=== PATIENT | female | born 1960 | race Caucasian/White ===

== ENCOUNTER 2020-08-30 16:01 | Inpatient (IN) | payer MEDICARE, OTHER ==
[~2020-08-30] VITALS: Ht 170.2 cm; Wt 77.7 kg
[~2020-08-30 16:01] MED LIST: TRAZ50TA66 PO; VALA500T4 PO; WARF4TAB PO
--- NOTE | 2020-08-30 17:00 | NUR ---
PT brought in by [facility] states that pt had surgery on August 09 and hasn't been the same since [facility] to walk and weakness. States that got worse and could not get out of bed. Pt states that her doctor called her today and said that she had fluid on her thoracic spine.
--- NOTE | 2020-08-30 17:28 | NUR ---
Provider at bedside
[2020-08-30] MEDS ORDERED: SODIUM CHLORIDE FLUSH 10ML SYR IVF ONE (17:30)
[2020-08-30 17:36] LABS: BASOPHILS % (AUTO) 1 % (0-1); EOSINOPHILS % (AUTO) 2 % (1-7); LYMPHOCYTES % (AUTO) 28 % (22-44); MEAN CORPUSCULAR HEMOGLOBIN 33.3 pg (27.0-34.8); MEAN CORPUSCULAR HGB CONC 34.7 g/dL (32.4-35.8); MEAN PLATELET VOLUME 7.1 fL (7.4-10.4); MONOCYTES % (AUTO) 7 % (2-9); NEUTROPHILS % (AUTO) 63 % (42-75); PLATELET COUNT 360 x10^3/uL (130-400); RED BLOOD COUNT 4.88 x10^6/uL (3.82-5.3); RED CELL DISTRIBUTION WIDTH 13.6 % (9.6-15.2)
--- NOTE | 2020-08-30 17:39 | NUR ---
pt to MRI
[2020-08-30 17:41] LABS: ALBUMIN 3.6 g/dL (3.4-5.0); ANION GAP 5 mmol/L (5-15); CHLORIDE 110 mmol/L (98-107); CREATININE 0.79 mg/dL (0.55-1.02)
[2020-08-30] MEDS ORDERED: GADOTERATE 7.5 MMOL/15ML SYR ONE (17:49)
[2020-08-30 18:01] LABS: MICROSCOPIC NOT IND
--- NOTE | 2020-08-30 18:52 | NUR ---
PT. RETURN FROM MRI AT THIS TIME. [facility] IN TO EVAL PT. FOR ADMISSION.
--- NOTE | 2020-08-30 19:04 | NUR ---
CORRECTION: PT SURGERY WAS ON May NOT July.
--- NOTE | 2020-08-30 19:29 | NUR ---
REPORT TO DIANNE PRINGLE. FLOOR READY FOR PT. TRANSPORT.
[2020-08-30] MEDS ORDERED: ONDANSETRON ODT 4 MG PO PRN (19:30)
[2020-08-30] MEDS ORDERED: ACETAMINOPHEN 325 MG TABLET PO PRN (19:30)
[2020-08-30] MEDS ORDERED: LIDODERM 5% PATCH TD PRN (19:30)
[2020-08-30 19:40] VITALS: BP 125/69
[2020-08-30] MEDS ORDERED: TIZA-106 PO (20:53)
[2020-08-30] MEDS ORDERED: APIX5TAB PO (20:53)
[2020-08-30] MEDS ORDERED: OXYC-306 PO (20:53)
[2020-08-30] MEDS ORDERED: DIPH25CA61 PO (20:53)
[2020-08-30] MEDS ORDERED: MELATONIN 5 MG TABLET PO PRN (21:00)
[2020-08-30] MEDS ORDERED: DIPHENHYDRAMINE 25 MG CAPSULE PO PRN (21:30)
[2020-08-30] MEDS: OXYcodone/APAP 7.5/325MG TABLET PO PRN (22:26)
[2020-08-30] MEDS: APIXABAN 5 MG TABLET PO SCH (22:26)
[2020-08-30] MEDS: TRAZODONE 150MG TABLET PO SCH (23:35)
[2020-08-30] MEDS: DOCUSATE 100 MG CAPSULE PO PRN (23:35)
[2020-08-31] VITALS: BP 122/75
[2020-08-31 05:31] LABS: BASOPHILS % (AUTO) 0 % (0-1); EOSINOPHILS % (AUTO) 0 % (1-7); LYMPHOCYTES % (AUTO) 8 % (22-44); MEAN CORPUSCULAR HEMOGLOBIN 33.2 pg (27.0-34.8); MEAN CORPUSCULAR HGB CONC 34.8 g/dL (32.4-35.8); MEAN PLATELET VOLUME 7.1 fL (7.4-10.4); MONOCYTES % (AUTO) 1 % (2-9); NEUTROPHILS % (AUTO) 92 % (42-75); PLATELET COUNT 349 x10^3/uL (130-400); RED BLOOD COUNT 4.88 x10^6/uL (3.82-5.3); RED CELL DISTRIBUTION WIDTH 13.3 % (9.6-15.2)
[2020-08-31 05:34] LABS: ANION GAP 8 mmol/L (5-15); CALCIUM 9.4 mg/dL (8.5-10.1); CHLORIDE 110 mmol/L (98-107); CREATININE 0.77 mg/dL (0.55-1.02)
[2020-08-31] MEDS: OXYcodone/APAP 7.5/325MG TABLET PO PRN ×3 (05:55→20:07)
[2020-08-31] MEDS: INSULIN LISPRO 100 UNITS/ML, PEN SQ-INSULIN SCH ×4 (07:00→20:13)
[2020-08-31] MEDS: APIXABAN 5 MG TABLET PO SCH (07:46)
[2020-08-31 07:48] VITALS: BP 123/83
[2020-08-31 12:40] LABS: HCT (SEDRATE) 47.8 % (34.6-47.8)
[2020-08-31 12:46] LABS: INTERNATIONAL NORMALIZED RATIO 1.03 (0.93-1.1)
[2020-08-31 13:26] LABS: FREE T4 (FREE THYROXINE) 1.01 ng/dL (0.76-1.46)
[2020-08-31 16:03] VITALS: BP 132/74
[2020-08-31] MEDS: TIZANIDINE 2MG TABLET PO PRN (16:52)
[2020-08-31 18:43] VITALS: BP 137/77
[2020-08-31] MEDS: ENOXAPARIN 80 MG/0.8 ML SQ SCH (20:00)
[2020-08-31] MEDS: DOCUSATE 100 MG CAPSULE PO PRN (22:51)
[2020-08-31] MEDS: TRAZODONE 150MG TABLET PO SCH (22:51)
[2020-08-31] MEDS: INSULIN GLARGINE 100 UNITS/ML, PEN SQ-INSULIN SCH (22:52)
[2020-09-01 00:31] VITALS: BP 115/69
[2020-09-01 05:22] LABS: BASOPHILS % (AUTO) 0 % (0-1); EOSINOPHILS % (AUTO) 0 % (1-7); LYMPHOCYTES % (AUTO) 6 % (22-44); MEAN CORPUSCULAR HEMOGLOBIN 33.2 pg (27.0-34.8); MEAN CORPUSCULAR HGB CONC 34.6 g/dL (32.4-35.8); MEAN PLATELET VOLUME 7.4 fL (7.4-10.4); MONOCYTES % (AUTO) 2 % (2-9); NEUTROPHILS % (AUTO) 93 % (42-75); PLATELET COUNT 331 x10^3/uL (130-400); RED BLOOD COUNT 4.51 x10^6/uL (3.82-5.3); RED CELL DISTRIBUTION WIDTH 13.3 % (9.6-15.2)
[2020-09-01] MEDS: OXYcodone/APAP 7.5/325MG TABLET PO PRN ×3 (05:29→21:34)
[2020-09-01 05:35] LABS: ALBUMIN 3.4 g/dL (3.4-5.0); ANION GAP 5 mmol/L (5-15); CALCIUM 9.2 mg/dL (8.5-10.1); CHLORIDE 114 mmol/L (98-107)
[2020-09-01 05:39] LABS: ALANINE AMINOTRANSFERASE 30 U/L (12-78); ALKALINE PHOSPHATASE 51 U/L (45-117); BILIRUBIN,TOTAL 0.3 mg/dL (0.2-1.0); CREATININE 0.74 mg/dL (0.55-1.02); TOTAL PROTEIN 6.6 g/dL (6.4-8.2)
[2020-09-01] MEDS: INSULIN LISPRO 100 UNITS/ML, PEN SQ-INSULIN SCH ×4 (07:48→21:35)
[2020-09-01] MEDS: ENOXAPARIN 80 MG/0.8 ML SQ SCH ×2 (07:49→20:00)
[2020-09-01 08:35] VITALS: BP 121/78
[2020-09-01] MEDS: TIZANIDINE 2MG TABLET PO PRN (10:32)
[2020-09-01 14:18] VITALS: BP 126/72
[2020-09-01 19:08] VITALS: BP 143/82
[2020-09-01] MEDS: TRAZODONE 150MG TABLET PO SCH (21:34)
[2020-09-01] MEDS: INSULIN GLARGINE 100 UNITS/ML, PEN SQ-INSULIN SCH (21:35)
[2020-09-01] MEDS: DOCUSATE 100 MG CAPSULE PO PRN (22:56)
[2020-09-02 01:13] VITALS: BP 129/75
[2020-09-02] MEDS: OXYcodone/APAP 7.5/325MG TABLET PO PRN ×3 (04:28→20:24)
[2020-09-02 07:07] VITALS: BP 127/69
[2020-09-02] MEDS: ENOXAPARIN 80 MG/0.8 ML SQ SCH (07:16)
[2020-09-02] MEDS: TIZANIDINE 2MG TABLET PO PRN ×2 (08:09→18:50)
[2020-09-02] MEDS: INSULIN LISPRO 100 UNITS/ML, PEN SQ-INSULIN SCH ×4 (08:14→21:23)
[2020-09-02 13:28] VITALS: BP 145/80
[2020-09-02] MEDS: DOCUSATE 100 MG CAPSULE PO PRN (17:25)
[2020-09-02 18:54] VITALS: BP 153/71
[2020-09-02] MEDS: APIXABAN 5 MG TABLET PO SCH (21:00)
[2020-09-02] MEDS: INSULIN GLARGINE 100 UNITS/ML, PEN SQ-INSULIN SCH (21:22)
[2020-09-02] MEDS: TRAZODONE 150MG TABLET PO SCH (22:14)
[2020-09-03 00:08] VITALS: BP 136/80
[2020-09-03] MEDS: OXYcodone/APAP 7.5/325MG TABLET PO PRN ×3 (04:52→20:36)
[2020-09-03] MEDS: INSULIN LISPRO 100 UNITS/ML, PEN SQ-INSULIN SCH ×4 (07:00→20:42)
[2020-09-03 07:08] VITALS: BP 133/74
[2020-09-03] MEDS ORDERED: LIDOCAINE 1%, 20ML ONE ×2 (07:27→07:38)
[2020-09-03] MEDS: APIXABAN 5 MG TABLET PO SCH ×2 (08:02→20:35)
[2020-09-03 09:47] LABS: GLUCOSE, CSF 92 mg/dL (40-80); TOTAL PROTEIN,CSF 87 mg/dL (15-45)
[2020-09-03 14:10] VITALS: BP 142/76
[2020-09-03] MEDS: POLYETHYLENE GLYCOL 17 GM PACKET PO SCH ×2 (16:25→20:36)
[2020-09-03] MEDS: TIZANIDINE 2MG TABLET PO PRN (17:52)
[2020-09-03 20:34] VITALS: BP 133/74
[2020-09-03] MEDS: TRAZODONE 150MG TABLET PO SCH (20:35)
[2020-09-03] MEDS: INSULIN GLARGINE 100 UNITS/ML, PEN SQ-INSULIN SCH (20:41)
[2020-09-04 01:33] VITALS: BP 132/63
[2020-09-04] MEDS: OXYcodone/APAP 7.5/325MG TABLET PO PRN ×2 (04:56→12:45)
[2020-09-04] MEDS: POLYETHYLENE GLYCOL 17 GM PACKET PO SCH (08:11)
[2020-09-04] MEDS: APIXABAN 5 MG TABLET PO SCH (08:11)
[2020-09-04] MEDS: INSULIN LISPRO 100 UNITS/ML, PEN SQ-INSULIN SCH ×2 (08:31→12:32)
[2020-09-04 08:37] VITALS: BP 114/71
[2020-09-04] MEDS ORDERED: SENN-204 PO (10:45)
[2020-09-04] MEDS ORDERED: PRED10TA PO (10:45)
[2020-09-04 14:44] VITALS: BP 111/71
== END 2020-09-04 16:36 | disposition home or self-care (01) | DRG 99 ==
LOC: ED 16:30 → 3N 19:35 → ED 22:34
PROVIDERS: ADMIT Internal Medicine; ATTEND Family Medicine
PROC: 00JU3ZZ Inspection of Spinal Canal, Percutaneous Approach (ICD-10-PCS; principal; 2020-09-03)
DX: G37.3 Acute transverse myelitis in demyelinating disease of central nervous system (principal); J44.9 Chronic obstructive pulmonary disease, unspecified; I87.2 Venous insufficiency (chronic) (peripheral); G95.19 Other vascular myelopathies; M48.061 Spinal stenosis, lumbar region without neurogenic claudication; E11.51 Type 2 diabetes mellitus with diabetic peripheral angiopathy without gangrene; E11.65 Type 2 diabetes mellitus with hyperglycemia; F12.90 Cannabis use, unspecified, uncomplicated; I73.9 Peripheral vascular disease, unspecified; F17.210 Nicotine dependence, cigarettes, uncomplicated; G82.20 Paraplegia, unspecified; I10 Essential (primary) hypertension; T38.0X5A Adverse effect of glucocorticoids and synthetic analogues, initial encounter; Z86.711 Personal history of pulmonary embolism; Z79.01 Long term (current) use of anticoagulants; Z86.718 Personal history of other venous thrombosis and embolism; Z79.899 Other long term (current) drug therapy; Z79.891 Long term (current) use of opiate analgesic; Z88.8 Allergy status to other drugs, medicaments and biological substances; Z88.5 Allergy status to narcotic agent; Z88.1 Allergy status to other antibiotic agents; Z83.6 Family history of other diseases of the respiratory system; Z82.49 Family history of ischemic heart disease and other diseases of the circulatory system
CPT/HCPCS: 36415; 62328; 70553; 72156; 80048; 80053; 81003; 82040; 82042; 82784; 82945; 82962; 83873; 84157; 84439; 84443; 84481; 85025; 85610; 85651; 86255; 86645; 86695; 86696; 86762; 86777; 86778; 87070; 87116; 87205; 87206; 89051; G0378; J2930; A9575; J1815